=== PATIENT | female | born 1955 | race Caucasian/White ===

== ENCOUNTER → 2016-08-11 | Outpatient (CLI) | payer OTHER ==
[~2016-08-11] MED LIST: ACET500T76 PO; AMOX1TAB64 PO; ASPI-515 PO; B12 PO; CALCIUM PO; FISH1CAP PO; GLUC-120 PO; GLUCOSAMINE PO; HYDR-882 PO; IBUP-1222 PO; LACT1CAP37 PO; LISI5TAB7 PO; METO25TA2 PO; MULTIVITAMIN PO; OMNIPAQUE 350 MG/ML, 100ML BOTTLE ONE; SENN1TAB5 PO; TUMERIC PO; VITAMIN D3 PO
== END | disposition home or self-care (01) ==
LOC: CFH 13:13
PROVIDERS: ATTEND Specialist
DX: C56.1 Malignant neoplasm of right ovary (principal); R59.9 Enlarged lymph nodes, unspecified
CPT/HCPCS: 74177; Q9967

== ENCOUNTER → 2016-09-04 | Outpatient (CLI) | payer OTHER ==
[~2016-09-04] MED LIST changes: -OMNIPAQUE 350 MG/ML, 100ML BOTTLE ONE
== END | disposition home or self-care (01) ==
LOC: STAR 13:30
PROVIDERS: ATTEND Nurse Practitioner Family
DX: Z01.810 Encounter for preprocedural cardiovascular examination (principal); C56.1 Malignant neoplasm of right ovary
CPT/HCPCS: 93005

== ENCOUNTER → 2016-12-30 | Outpatient (CLI) | payer OTHER ==
[~2016-12-30] MED LIST changes: +ACET500T71 PO; -ACET500T76 PO; +SENN-52 PO; -SENN1TAB5 PO
== END | disposition home or self-care (01) ==
LOC: CFH 07:15
PROVIDERS: ATTEND Specialist
DX: K80.20 Calculus of gallbladder without cholecystitis without obstruction (principal); R18.8 Other ascites; C56.1 Malignant neoplasm of right ovary
CPT/HCPCS: 76700

== ENCOUNTER 2017-01-01 09:13 | Inpatient (IN) | payer OTHER ==
[~2017-01-01] VITALS: Ht 157.5 cm; Wt 84.6 kg
[2017-01-01] MEDS ORDERED: MORPHINE SULFATE 4 MG/ML, 1ML ONE (09:55)
[2017-01-01] MEDS ORDERED: ONDANSETRON 2MG/ML, 2ML ONE (09:56)
[2017-01-01 09:58] LABS: HEMATOCRIT 41.6 % (34.6-47.8); HEMOGLOBIN 13.8 g/dL (11.7-16.4); WHITE BLOOD COUNT 7.8 x10^3/uL (3.4-10)
[2017-01-01] MEDS ORDERED: SODIUM CHLORIDE 0.9% 1,000ML IVBOLUS ONE (10:00)
[2017-01-01] MEDS ORDERED: MORPHINE SULFATE 4 MG/ML, 1ML IVPush PRN (10:00)
[2017-01-01] MEDS ORDERED: ONDANSETRON 2MG/ML, 2ML IVPush ONE (10:00)
[2017-01-01] MEDS ORDERED: SODIUM CHLORIDE FLUSH 10ML SYR IVF ONE (10:00)
[2017-01-01 11:09] LABS: BLOOD UREA NITROGEN 10 mg/dL (7-18)
[2017-01-01 11:12] LABS: ASPARTATE AMINO TRANSFERASE 42 U/L (15-37)
[2017-01-01] MEDS ORDERED: OMNIPAQUE 350 MG/ML, 100ML BOTTLE ONE (11:53)
[2017-01-01] MEDS ORDERED: LISI5TAB7 PO (12:53)
[2017-01-01 18:36] VITALS: BP 144/83
[2017-01-01] MEDS ORDERED: FAMOTIDINE 20 MG/2 ML IVPush PRN (19:30)
[2017-01-01] MEDS: MORPHINE SULFATE 4 MG/ML, 1ML IVPush PRN (20:48)
[2017-01-01 21:00] VITALS: BP 144/83
[2017-01-01] MEDS: D5%-0.45NACL+KCL 20MEQ 1,000 ML IV SCH (21:59)
[2017-01-01] MEDS: ONDANSETRON 2MG/ML, 2ML IVPush PRN (23:11)
[2017-01-02 01:02] VITALS: BP 121/78
[2017-01-02 04:32] LABS: HEMATOCRIT 37.5 % (34.6-47.8); HEMOGLOBIN 12.3 g/dL (11.7-16.4); WHITE BLOOD COUNT 5.8 x10^3/uL (3.4-10)
[2017-01-02 04:40] LABS: BLOOD UREA NITROGEN 6 mg/dL (7-18)
[2017-01-02 07:24] VITALS: BP 120/76
[2017-01-02] MEDS: MORPHINE SULFATE 4 MG/ML, 1ML IVPush PRN ×2 (07:47→21:23)
[2017-01-02] MEDS: ONDANSETRON 2MG/ML, 2ML IVPush PRN (07:47)
[2017-01-02 13:43] VITALS: BP 120/76
[2017-01-02] MEDS ORDERED: BENZOCAINE AEROSOL SPRAY 20%, 60ML TP PRN (14:30)
[2017-01-02] MEDS ORDERED: ACETAMINOPHEN 325 MG TABLET PO PRN (14:30)
[2017-01-02 19:18] VITALS: BP 132/77
[2017-01-02] MEDS: D5%-0.45NACL+KCL 20MEQ 1,000 ML IV SCH (20:26)
[2017-01-02] MEDS ORDERED: HYDROmorphone 2 MG/ML, 1ML IVPush PRN (20:30)
[2017-01-03 00:35] VITALS: BP 132/79
[2017-01-03 07:39] VITALS: BP 108/70
[2017-01-03 14:17] VITALS: BP 109/72
[2017-01-03] MEDS: D5%-0.45NACL+KCL 20MEQ 1,000 ML IV SCH (18:29)
[2017-01-03] MEDS ORDERED: HYDROmorphone 2 MG/ML, 1ML IVPush PRN (19:30)
[2017-01-03] MEDS ORDERED: ACETAMINOPHEN 325 MG TABLET PO PRN (19:30)
[2017-01-03 19:54] VITALS: BP 114/74
[2017-01-03 23:27] LABS: BLOOD UREA NITROGEN 9 mg/dL (7-18)
[2017-01-03] MEDS: ONDANSETRON 2MG/ML, 2ML IVPush PRN (23:39)
[2017-01-03] MEDS: MORPHINE SULFATE 4 MG/ML, 1ML IVPush PRN (23:39)
[2017-01-04 01:13] VITALS: BP 108/70
[2017-01-04 07:44] VITALS: BP 115/79
[2017-01-04 14:00] VITALS: BP 116/77
[2017-01-04] MEDS: D5%-0.45NACL+KCL 20MEQ 1,000 ML IV SCH (14:44)
[2017-01-04 19:53] VITALS: BP 121/79
[2017-01-04] MEDS: ONDANSETRON 2MG/ML, 2ML IVPush PRN (23:25)
[2017-01-04] MEDS: MORPHINE SULFATE 4 MG/ML, 1ML IVPush PRN (23:25)
[2017-01-05 01:56] VITALS: BP 129/79
[2017-01-05 07:49] VITALS: BP 106/70
[2017-01-05] MEDS: D5%-0.45NACL+KCL 20MEQ 1,000 ML IV SCH (09:11)
[2017-01-05 14:23] VITALS: BP 116/75
[2017-01-05 20:18] VITALS: BP 105/76
[2017-01-06] MEDS: D5%-0.45NACL+KCL 20MEQ 1,000 ML IV SCH (04:52)
[2017-01-06 04:55] VITALS: BP 116/82
[2017-01-06 05:18] LABS: HEMATOCRIT 38.1 % (34.6-47.8); HEMOGLOBIN 12.6 g/dL (11.7-16.4); WHITE BLOOD COUNT 6.6 x10^3/uL (3.4-10)
[2017-01-06 05:26] LABS: BLOOD UREA NITROGEN 6 mg/dL (7-18)
[2017-01-06 07:53] VITALS: BP 115/76
[2017-01-06] MEDS: ONDANSETRON 2MG/ML, 2ML IVPush PRN ×2 (11:01→17:33)
[2017-01-06] MEDS: MORPHINE SULFATE 4 MG/ML, 1ML IVPush PRN ×4 (11:02→20:47)
[2017-01-06 15:32] VITALS: BP 117/80
[2017-01-06] MEDS ORDERED: OMNIPAQUE 350 MG/ML, 150 ML BOTTLE ONE (16:29)
[2017-01-06 20:14] VITALS: BP 126/88
[2017-01-07 00:46] VITALS: BP 113/76
[2017-01-07] MEDS: D5%-0.45NACL+KCL 20MEQ 1,000 ML IV SCH ×2 (00:49→21:03)
[2017-01-07] MEDS: MORPHINE SULFATE 4 MG/ML, 1ML IVPush PRN ×4 (01:58→20:21)
[2017-01-07] MEDS: ONDANSETRON 2MG/ML, 2ML IVPush PRN ×3 (01:58→20:22)
[2017-01-07 07:41] VITALS: BP 107/72
[2017-01-07 13:40] VITALS: BP 111/75
[2017-01-07] MEDS: FAMOTIDINE 20 MG/2 ML IVPush PRN (17:08)
[2017-01-07 19:49] VITALS: BP 116/80
[2017-01-08 01:40] VITALS: BP 110/74
[2017-01-08 07:59] VITALS: BP 101/67
[2017-01-08] MEDS ORDERED: LORazepam 0.5MG TABLET PO PRN (09:00)
[2017-01-08] MEDS ORDERED: LORazepam 2 MG/ML, 1ML IV PRN (09:00)
[2017-01-08] MEDS: METOCLOPRAMIDE 10MG TABLET PO SCH ×4 (09:00→22:02)
[2017-01-08] MEDS: METOCLOPRAMIDE 5 MG/ML, 2ML IV SCH ×3 (09:50→21:00)
[2017-01-08] MEDS: FAMOTIDINE 20 MG/2 ML IVPush PRN ×2 (11:53→20:05)
[2017-01-08] MEDS: ONDANSETRON 2MG/ML, 2ML IVPush PRN ×2 (12:37→22:06)
[2017-01-08] MEDS: MORPHINE SULFATE 4 MG/ML, 1ML IVPush PRN ×3 (12:37→22:06)
[2017-01-08 12:38] VITALS: BP 126/83
[2017-01-08] MEDS: D5%-0.45NACL+KCL 20MEQ 1,000 ML IV SCH (18:04)
[2017-01-08 19:10] VITALS: BP 123/79
[2017-01-09 01:41] VITALS: BP 105/67
[2017-01-09] MEDS: METOCLOPRAMIDE 10MG TABLET PO SCH ×4 (04:00→21:29)
[2017-01-09] MEDS: METOCLOPRAMIDE 5 MG/ML, 2ML IV SCH ×4 (04:30→21:05)
[2017-01-09 07:53] VITALS: BP 114/79
[2017-01-09] MEDS: FAMOTIDINE 20 MG/2 ML IVPush PRN ×2 (08:03→19:54)
[2017-01-09 14:40] VITALS: BP 111/74
[2017-01-09] MEDS: D5%-0.45NACL+KCL 20MEQ 1,000 ML IV SCH (15:42)
[2017-01-09 18:45] VITALS: BP 116/78
[2017-01-09] MEDS: ONDANSETRON 2MG/ML, 2ML IVPush PRN (23:10)
[2017-01-09] MEDS: MORPHINE SULFATE 4 MG/ML, 1ML IVPush PRN (23:10)
[2017-01-10 02:51] VITALS: BP 112/73
[2017-01-10] MEDS: METOCLOPRAMIDE 10MG TABLET PO SCH ×4 (04:00→21:32)
[2017-01-10] MEDS: METOCLOPRAMIDE 5 MG/ML, 2ML IV SCH ×4 (04:12→21:28)
[2017-01-10] MEDS: D5%-0.45NACL+KCL 20MEQ 1,000 ML IV SCH (08:23)
[2017-01-10 08:24] VITALS: BP 127/63
[2017-01-10] MEDS: FAMOTIDINE 20 MG/2 ML IVPush PRN (08:31)
[2017-01-10 12:45] VITALS: BP 145/85
[2017-01-10] MEDS: ONDANSETRON 2MG/ML, 2ML IVPush PRN (18:22)
[2017-01-10] MEDS: MORPHINE SULFATE 4 MG/ML, 1ML IVPush PRN (18:23)
[2017-01-10] MEDS ORDERED: ACETAMINOPHEN 325 MG TABLET PO PRN (18:30)
[2017-01-10 19:45] VITALS: BP 115/76
[2017-01-10] MEDS: FAMOTIDINE 20 MG/2 ML IVPush SCH (21:32)
[2017-01-11 02:55] VITALS: BP 135/94
[2017-01-11] MEDS: METOCLOPRAMIDE 5 MG/ML, 2ML IV SCH ×4 (03:48→21:15)
[2017-01-11] MEDS: METOCLOPRAMIDE 10MG TABLET PO SCH ×4 (03:48→21:14)
[2017-01-11] MEDS: D5%-0.45NACL+KCL 20MEQ 1,000 ML IV SCH ×2 (04:26→23:37)
[2017-01-11 07:46] VITALS: BP 122/79
[2017-01-11] MEDS: FAMOTIDINE 20 MG/2 ML IVPush SCH ×2 (09:17→21:14)
[2017-01-11 14:58] VITALS: BP 124/83
[2017-01-11] MEDS: ONDANSETRON 2MG/ML, 2ML IVPush PRN (18:34)
[2017-01-11] MEDS: MORPHINE SULFATE 4 MG/ML, 1ML IVPush PRN (18:34)
[2017-01-11 20:12] VITALS: BP 121/79
[2017-01-12] MEDS: METOCLOPRAMIDE 10MG TABLET PO SCH ×4 (04:00→22:06)
[2017-01-12] MEDS: METOCLOPRAMIDE 5 MG/ML, 2ML IV SCH ×4 (04:11→22:00)
[2017-01-12 08:05] VITALS: BP 123/86
[2017-01-12] MEDS: FAMOTIDINE 20 MG/2 ML IVPush SCH ×2 (08:16→22:06)
[2017-01-12] MEDS ORDERED: OXYcodone/APAP 5/325MG TABLET PO PRN (09:00)
[2017-01-12] MEDS: MORPHINE SULFATE 4 MG/ML, 1ML IVPush PRN ×2 (15:58→19:45)
[2017-01-12] MEDS: ONDANSETRON 2MG/ML, 2ML IVPush PRN (15:58)
[2017-01-12] MEDS: CEFOTETAN PMX 2GM/50ML 50 ML IV SCH (18:16)
[2017-01-12 18:52] LABS: HEMATOCRIT 39.8 % (34.6-47.8); HEMOGLOBIN 12.9 g/dL (11.7-16.4); WHITE BLOOD COUNT 6.3 x10^3/uL (3.4-10)
[2017-01-12 19:01] LABS: ASPARTATE AMINO TRANSFERASE 25 U/L (15-37); BLOOD UREA NITROGEN 5 mg/dL (7-18)
[2017-01-12 19:19] VITALS: BP 117/78
[2017-01-12] MEDS: D5%-0.45NACL+KCL 20MEQ 1,000 ML IV SCH ×2 (22:06→23:00)
[2017-01-13 02:50] VITALS: BP 121/75
[2017-01-13] MEDS: METOCLOPRAMIDE 5 MG/ML, 2ML IV SCH ×4 (04:32→21:58)
[2017-01-13] MEDS: METOCLOPRAMIDE 10MG TABLET PO SCH ×4 (04:32→21:57)
[2017-01-13] MEDS: CEFOTETAN PMX 2GM/50ML 50 ML IV SCH ×2 (05:45→17:48)
[2017-01-13] MEDS ORDERED: EPINEPHRINE 1 MG/ML, 1ML ONE (06:15)
[2017-01-13] MEDS ORDERED: BUPIVACAINE/PF 0.5% ONE (06:15)
[2017-01-13] MEDS ORDERED: FENTANYL PF 100 MCG/2ML ONE ×3 (06:46→08:17)
[2017-01-13] MEDS ORDERED: MIDAZOLAM 1 MG/ML, 2ML ONE (06:46)
[2017-01-13] MEDS ORDERED: ONDANSETRON 2MG/ML, 2ML ONE ×2 (06:48)
[2017-01-13] MEDS ORDERED: ROCURONIUM 10 MG/ML ONE ×2 (06:48→06:51)
[2017-01-13] MEDS ORDERED: DEXAMETHASONE 4 MG/ML, 1ML ONE ×2 (06:48)
[2017-01-13] MEDS ORDERED: PROPOFOL 10 MG/ML, 20ML ONE (06:48)
[2017-01-13] MEDS ORDERED: SUCCINYLCHOLINE 20 MG/ML, 10ML ONE (06:48)
[2017-01-13] MEDS ORDERED: LIDOCAINE GEL 2%, 5ML ONE (06:51)
[2017-01-13] MEDS ORDERED: PHENYLEPHRINE 10 MG/ML ONE (07:03)
[2017-01-13] MEDS ORDERED: KETAMINE 10 MG/ML, 20ML ONE (07:05)
[2017-01-13] MEDS ORDERED: KETOROLAC 30 MG/1 ML ONE (07:21)
[2017-01-13] MEDS ORDERED: ACETAMINOPHEN 325 MG TABLET PO PRN (07:30)
[2017-01-13] MEDS ORDERED: ALBUTEROL SULFATE 2.5 MG/3 ML NPPB PRN (07:30)
[2017-01-13] MEDS ORDERED: hydrALAzine 20 MG/ML, 1ML IV PRN (07:30)
[2017-01-13] MEDS ORDERED: FENTANYL PF 100 MCG/2ML IV PRN (07:30)
[2017-01-13] MEDS ORDERED: MEPERIDINE/PF 25MG/0.5ML IVPush PRN (07:30)
[2017-01-13] MEDS ORDERED: OXYcodone 5 MG/5 ML ORAL.SOL UDC PO PRN (07:30)
[2017-01-13] MEDS ORDERED: MIDAZOLAM 1 MG/ML, 2ML IV PRN (07:30)
[2017-01-13] MEDS ORDERED: LABETALOL 5MG/ML, 20ML IV PRN (07:30)
[2017-01-13] MEDS ORDERED: ONDANSETRON 2MG/ML, 2ML IVPush PRN (07:30)
[2017-01-13] MEDS ORDERED: PROMETHAZINE 25 MG/ML, 1ML IV PRN (07:30)
[2017-01-13] MEDS ORDERED: NEOSTIGMINE 1 MG/ML, 10ML ONE (08:21)
[2017-01-13] MEDS ORDERED: GLYCOPYRROLATE 0.2MG/1ML, 5ML ONE (08:21)
[2017-01-13] MEDS ORDERED: OXYcodone 5 MG/5 ML ORAL.SOL UDC ONE (08:59)
[2017-01-13] MEDS ORDERED: HYDROmorphone 1 MG/ML, 1ML ONE (08:59)
[2017-01-13] MEDS: HYDROmorphone 1 MG/ML, 1ML IV PRN ×2 (09:03→09:11)
[2017-01-13 09:55] VITALS: BP 152/84
[2017-01-13] MEDS: FAMOTIDINE 20 MG/2 ML IVPush SCH ×2 (10:15→20:56)
[2017-01-13] MEDS: MORPHINE SULFATE 4 MG/ML, 1ML IVPush PRN ×4 (10:52→18:26)
[2017-01-13] MEDS: D5%-0.45NACL+KCL 20MEQ 1,000 ML IV SCH ×3 (13:00→14:25)
[2017-01-13 13:36] VITALS: BP 123/71
[2017-01-13] MEDS ORDERED: CATHFLO-ALTEPLASE 2 MG/2 ML CATHFLUSH ONE ×2 (16:00)
[2017-01-13 20:22] VITALS: BP 129/68
[2017-01-13] MEDS: OXYcodone/APAP 7.5/325MG TABLET PO PRN (20:40)
[2017-01-13] MEDS: ONDANSETRON 2MG/ML, 2ML IVPush PRN (20:40)
[2017-01-14] MEDS: D5%-0.45NACL+KCL 20MEQ 1,000 ML IV SCH ×4 (02:25→20:32)
[2017-01-14 02:45] VITALS: BP 127/72
[2017-01-14] MEDS: METOCLOPRAMIDE 10MG TABLET PO SCH ×5 (04:20→21:43)
[2017-01-14] MEDS: METOCLOPRAMIDE 5 MG/ML, 2ML IV SCH ×4 (04:26→20:32)
[2017-01-14 07:43] VITALS: BP 123/75
[2017-01-14] MEDS: FAMOTIDINE 20 MG/2 ML IVPush SCH ×2 (07:46→20:32)
[2017-01-14] MEDS: ONDANSETRON 2MG/ML, 2ML IVPush PRN ×2 (07:46→15:47)
[2017-01-14] MEDS: MORPHINE SULFATE 4 MG/ML, 1ML IVPush PRN ×5 (07:46→21:42)
[2017-01-14] MEDS ORDERED: OXYC-293 PO (13:22)
[2017-01-14] MEDS ORDERED: ONDA4TAB12 PO (13:23)
[2017-01-14] MEDS ORDERED: METO10TA2 PO (13:24)
[2017-01-14] MEDS: OXYcodone/APAP 7.5/325MG TABLET PO PRN (13:42)
[2017-01-14 14:32] VITALS: BP 131/77
[2017-01-14 20:02] VITALS: BP 114/79
[2017-01-15 02:10] VITALS: BP 108/70
[2017-01-15] MEDS: METOCLOPRAMIDE 10MG TABLET PO SCH ×3 (03:25→15:27)
[2017-01-15] MEDS: D5%-0.45NACL+KCL 20MEQ 1,000 ML IV SCH ×3 (04:44→13:00)
[2017-01-15] MEDS: ONDANSETRON 2MG/ML, 2ML IVPush PRN (04:44)
[2017-01-15] MEDS: METOCLOPRAMIDE 5 MG/ML, 2ML IV SCH ×3 (04:44→16:00)
[2017-01-15] MEDS: MORPHINE SULFATE 4 MG/ML, 1ML IVPush PRN (04:44)
[2017-01-15 06:13] LABS: HEMATOCRIT 35.2 % (34.6-47.8); HEMOGLOBIN 11.7 g/dL (11.7-16.4)
[2017-01-15 06:20] LABS: ASPARTATE AMINO TRANSFERASE 23 U/L (15-37); BLOOD UREA NITROGEN 4 mg/dL (7-18)
[2017-01-15 07:55] VITALS: BP 110/76
[2017-01-15] MEDS: OXYcodone/APAP 7.5/325MG TABLET PO PRN ×3 (08:21→16:43)
[2017-01-15] MEDS: KETOROLAC 30 MG/1 ML IM SCH ×2 (09:30→15:29)
[2017-01-15] MEDS: FAMOTIDINE 20 MG/2 ML IVPush SCH (10:11)
[2017-01-15 14:00] VITALS: BP 126/70
== END 2017-01-15 17:51 | disposition home or self-care (01) | DRG 418 ==
LOC: ED 10:29 → EDIP 13:22 → 3NW 17:50
PROVIDERS: ADMIT Specialist; ATTEND Specialist
PROC: 02HV33Z Insertion of Infusion Device into Superior Vena Cava, Percutaneous Approach (ICD-10-PCS; 2017-01-04)
PROC: B5181ZA Fluoroscopy of Superior Vena Cava using Low Osmolar Contrast, Guidance (ICD-10-PCS; 2017-01-04)
PROC: 3E0436Z Introduction of Nutritional Substance into Central Vein, Percutaneous Approach (ICD-10-PCS; 2017-01-04)
PROC: 0DNW4ZZ Release Peritoneum, Percutaneous Endoscopic Approach (ICD-10-PCS; 2017-01-13)
PROC: 0FT44ZZ Resection of Gallbladder, Percutaneous Endoscopic Approach (ICD-10-PCS; principal; 2017-01-13 07:00)
DX: K80.00 Calculus of gallbladder with acute cholecystitis without obstruction (principal); C80.0 Disseminated malignant neoplasm, unspecified; R18.8 Other ascites; C56.9 Malignant neoplasm of unspecified ovary; K56.7 Ileus, unspecified; K82.8 Other specified diseases of gallbladder; K66.0 Peritoneal adhesions (postprocedural) (postinfection); Z85.41 Personal history of malignant neoplasm of cervix uteri; Z87.891 Personal history of nicotine dependence; Z85.43 Personal history of malignant neoplasm of ovary; Z90.710 Acquired absence of both cervix and uterus
CPT/HCPCS: 36415; 36569; 74000; 74177; 74250; 76937; 77001; 78226; 80048; 80053; 81001; 82040; 83690; 84134; 85025; 87086; 88304; 96361; 96374; 96375; J0171; J1100; J1170; J1885; J2250; J2405; J2704; J2710; J2997; J3010; J3490; Q9967; A9537; C1751; C1760; C9898; J0330; J2370; J2765; J3480; J7030; S0028; S0074

== ENCOUNTER 2017-02-19 18:43 | Inpatient (IN) | payer OTHER ==
[~2017-02-19] VITALS: Ht 157.5 cm; Wt 75.1 kg
[~2017-02-19 18:43] MED LIST changes: -ENOX80SY5 SQ
[2017-02-19] MEDS ORDERED: morphine SULFATE 10 MG/ML, 1ML ONE (21:15)
[2017-02-19] MEDS ORDERED: ONDANSETRON 2MG/ML, 2ML ONE (21:22)
[2017-02-19] MEDS ORDERED: MORPHINE SULFATE 4 MG/ML, 1ML IVPush PRN (21:30)
[2017-02-19] MEDS ORDERED: ONDANSETRON 2MG/ML, 2ML IVPush ONE (22:00)
[2017-02-19] MEDS ORDERED: HEPARIN 25,000 UNITS/500ML PMX 500 ML IV PRN (23:30)
[2017-02-19] MEDS ORDERED: HEPARIN 5,000 UNITS/ML, 1ML IV ONE (23:30)
[2017-02-20 00:11] VITALS: BP 98/64
[2017-02-20] MEDS ORDERED: PROCHLORPERAZINE 10MG TABLET PO PRN (01:30)
[2017-02-20] MEDS ORDERED: HEPARIN 5,000 UNITS/ML, 1ML IVPush SCH (01:30)
[2017-02-20] MEDS ORDERED: HEPARIN 25,000 UNITS/500ML PMX 500 ML IV SCH (01:30)
[2017-02-20] MEDS: POTASSIUM CHLORIDE 20 MEQ in SODIUM CHLORIDE 0.45% 1,000 ML IV SCH ×2 (02:06→11:00)
[2017-02-20] MEDS: morphine SULFATE ORAL.CONC 20 MG/ML SL PRN ×2 (02:28→14:22)
[2017-02-20] MEDS: ONDANSETRON ODT 4 MG PO PRN ×2 (02:28→15:07)
[2017-02-20 07:24] VITALS: BP 106/70
[2017-02-20] MEDS ORDERED: ENOX80SY5 SQ (09:52)
[2017-02-20] MEDS ORDERED: ENOXAPARIN 80 MG/0.8 ML SQ SCH (11:00)
[2017-02-20] MEDS ORDERED: FENTANYL 50 MCG PATCH TD SCH (12:00)
[2017-02-20 13:58] VITALS: BP 103/68
[2017-02-23] MEDS ORDERED: FENTANYL REMOVE PATCH NOTE XX SCH (12:00)
== END 2017-02-20 16:30 | disposition home or self-care (01) | DRG 300 ==
LOC: ED 23:24 → EDIP 23:36 → 3NW 23:59
PROVIDERS: ADMIT Specialist; ATTEND Specialist
DX: I82.411 Acute embolism and thrombosis of right femoral vein (principal); C56.9 Malignant neoplasm of unspecified ovary; C80.0 Disseminated malignant neoplasm, unspecified; K56.7 Ileus, unspecified; I82.441 Acute embolism and thrombosis of right tibial vein; I10 Essential (primary) hypertension
CPT/HCPCS: 36415; 85520; 85610; 85730; 96374; J1644; J1650; J2405; J3480; Q0162

== ENCOUNTER → 2017-02-19 | Outpatient (CLI) | payer OTHER ==
[~2017-02-19] MED LIST changes: +ENOX80SY5 SQ; +FENT1PAT77 TD; +METO10TA2 PO; +MORP2SYR SL; +ONDA4TAB10 PO; +ONDA4TAB12 PO; +OXYC-293 PO; +PROC10TA78 PO; +Roxanol PO; +[UNRECOGNIZED DRUG - OTHER]
== END | disposition home or self-care (01) ==
LOC: RAD 17:34
PROVIDERS: ATTEND Surgery
DX: I82.431 Acute embolism and thrombosis of right popliteal vein (principal); I82.411 Acute embolism and thrombosis of right femoral vein; I82.441 Acute embolism and thrombosis of right tibial vein

== ENCOUNTER 2017-02-24 06:50 | Inpatient (IN) | payer OTHER ==
[~2017-02-24] VITALS: Ht 157.5 cm; Wt 70.0 kg
[~2017-02-24 06:50] MED LIST changes: +ENOX80SY5 SQ
[2017-02-24] MEDS ORDERED: SODIUM CHLORIDE FLUSH 10ML SYR IVF ONE (07:30)
[2017-02-24] MEDS ORDERED: SODIUM CHLORIDE 0.9% 1,000ML IVBOLUS ONE (07:30)
[2017-02-24 08:38] LABS: HEMATOCRIT 27.8 % (34.6-47.8); HEMOGLOBIN 8.9 g/dL (11.7-16.4)
[2017-02-24 08:46] LABS: ASPARTATE AMINO TRANSFERASE 33 U/L (15-37); BLOOD UREA NITROGEN 40 mg/dL (7-18)
[2017-02-24] MEDS ORDERED: CEFTRIAXONE PMX 1GM/50ML 50 ML IVPB ONE (09:30)
[2017-02-24] MEDS ORDERED: CEFTRIAXONE PMX 1GM/50ML 50 ML ONE (09:44)
[2017-02-24] MEDS ORDERED: SODIUM CHLORIDE 0.9% 1,000 ML IV SCH ×2 (09:53→15:00)
[2017-02-24] MEDS ORDERED: POLYETHYLENE GLYCOL 17 GM PACKET PO PRN (10:00)
[2017-02-24] MEDS ORDERED: LABETALOL 5MG/ML, 20ML IVPush PRN (10:00)
[2017-02-24] MEDS ORDERED: TPN PER PHARMACY MC PRN (10:00)
[2017-02-24] MEDS ORDERED: LACTULOSE 10 GM/15 ML UDC PO PRN (10:00)
[2017-02-24] MEDS ORDERED: SODIUM CHLORIDE FLUSH 10ML SYR IVF PRN (11:00)
[2017-02-24] MEDS ORDERED: SODIUM CHLORIDE 0.9% 1,000 ML IV ONE (11:00)
[2017-02-24] MEDS ORDERED: CEFTRIAXONE 1,000 MG in DEXTROSE 5% 50 ML IV SCH (12:00)
[2017-02-24] MEDS: FENTANYL REMOVE PATCH NOTE XX SCH (12:00)
[2017-02-24 12:26] VITALS: BP 110/66
[2017-02-24] MEDS ORDERED: FILTER 1.2 MICRON IV PRN (14:30)
[2017-02-24] MEDS ORDERED: DEXTROSE 10% 500 ML IV PRN (17:00)
[2017-02-24] MEDS ORDERED: DEXTROSE 50%, 50ML SYRINGE IVPush PRN (17:00)
[2017-02-24] MEDS: ACETAMINOPHEN 650 MG SUPP PR PRN ×2 (17:22→23:35)
[2017-02-24] MEDS: DEXTROSE 70% IV SCH ×2 (17:34→18:00)
[2017-02-24] MEDS: FAT EMULSIONS IV SCH ×2 (17:34→18:00)
[2017-02-24] MEDS: [UNRECOGNIZED DRUG - OTHER] IV SCH ×2 (17:34→18:00)
[2017-02-24] MEDS: AMINO ACID 10% IV SCH ×2 (17:34→18:00)
[2017-02-24] MEDS ORDERED: D5%-0.2% NACL 1,000 ML IV SCH (21:00)
[2017-02-24] MEDS ORDERED: FAMOTIDINE 20 MG/2 ML IVPush SCH (21:00)
[2017-02-24] MEDS ORDERED: MAGNESIUM SULFATE PMX 2GM/50ML 50 ML IV ONE (21:00)
[2017-02-24] MEDS ORDERED: POTASSIUM CHLORIDE 40 MEQ in SODIUM CHLORIDE 0.9% 100 ML IV ONE (21:00)
[2017-02-24] MEDS: INSULIN REGULAR LOW DOSE Q6H X 48HRS SQ-INSULIN SCH (21:00)
[2017-02-24 21:16] LABS: BLOOD UREA NITROGEN 43 mg/dL (7-18)
[2017-02-24] MEDS: ENOXAPARIN 80 MG/0.8 ML SQ SCH (21:43)
[2017-02-24] MEDS ORDERED: MAGNESIUM SULFATE PMX 2GM/50ML 50 ML IV PRN (22:00)
[2017-02-25] MEDS: INSULIN REGULAR LOW DOSE Q6H X 48HRS SQ-INSULIN SCH (03:00)
[2017-02-25 03:30] VITALS: BP 98/48
[2017-02-25] MEDS: morphine SULFATE 10 MG/ML, 1ML IVPush PRN ×2 (04:29→22:45)
[2017-02-25 04:37] LABS: HEMATOCRIT 24.8 % (34.6-47.8); HEMOGLOBIN 7.9 g/dL (11.7-16.4); WHITE BLOOD COUNT 8.5 x10^3/uL (3.4-10)
[2017-02-25 04:45] LABS: BLOOD UREA NITROGEN 37 mg/dL (7-18)
[2017-02-25 04:50] LABS: ASPARTATE AMINO TRANSFERASE 25 U/L (15-37)
[2017-02-25] MEDS: ONDANSETRON 2MG/ML, 2ML IVPush PRN (07:49)
[2017-02-25] MEDS: ENOXAPARIN 80 MG/0.8 ML SQ SCH ×2 (08:47→21:01)
[2017-02-25] MEDS ORDERED: D5%-0.2% NACL 1,000 ML IV SCH (09:00)
[2017-02-25] MEDS ORDERED: CEFTRIAXONE 1,000 MG in DEXTROSE 5% 50 ML IV SCH ×3 (10:00→12:00)
[2017-02-25] MEDS: DEXTROSE 5% 1,000 ML IV SCH ×2 (11:19→21:05)
[2017-02-25] MEDS: ACETAMINOPHEN 650 MG SUPP PR PRN ×2 (14:48→22:45)
[2017-02-25] MEDS ORDERED: AMINO ACID 10% IV SCH (18:00)
[2017-02-25] MEDS ORDERED: FAT EMULSIONS IV SCH (18:00)
[2017-02-25] MEDS ORDERED: [UNRECOGNIZED DRUG - OTHER] IV SCH (18:00)
[2017-02-25] MEDS ORDERED: FILTER 1.2 MICRON IV PRN (18:00)
[2017-02-25] MEDS ORDERED: DEXTROSE 70% IV SCH (18:00)
[2017-02-25] MEDS ORDERED: INSULIN REGULAR LOW DOSE Q6H X 48HRS SQ-INSULIN SCH (21:00)
[2017-02-26 04:00] VITALS: BP 91/59
[2017-02-26 04:33] LABS: BLOOD UREA NITROGEN 32 mg/dL (7-18)
[2017-02-26] MEDS ORDERED: POTASSIUM CHLORIDE 40 MEQ in SODIUM CHLORIDE 0.9% 100 ML IV ONE (05:00)
[2017-02-26] MEDS: morphine SULFATE 10 MG/ML, 1ML IVPush PRN ×2 (06:38→23:10)
[2017-02-26] MEDS: INSULIN REGULAR LOW DOSE QDAY SQ-INSULIN SCH (09:00)
[2017-02-26 10:29] LABS: BLOOD UREA NITROGEN 26 mg/dL (7-18)
[2017-02-26 10:32] LABS: ASPARTATE AMINO TRANSFERASE 38 U/L (15-37)
[2017-02-26] MEDS: ENOXAPARIN 80 MG/0.8 ML SQ SCH ×2 (12:35→20:52)
[2017-02-26] MEDS: DEXTROSE 5% 1,000 ML IV SCH ×2 (12:36→22:50)
[2017-02-26] MEDS: CEFTRIAXONE PMX 1GM/50ML 50 ML IV SCH (12:36)
[2017-02-26] MEDS: FENTANYL 50 MCG PATCH TD PRN (12:48)
[2017-02-26] MEDS: ACETAMINOPHEN 650 MG SUPP PR PRN (15:03)
[2017-02-26] MEDS ORDERED: FILTER 1.2 MICRON IV PRN (18:00)
[2017-02-26] MEDS ORDERED: FAT EMULSIONS IV SCH (18:00)
[2017-02-26] MEDS ORDERED: DEXTROSE 70% IV SCH (18:00)
[2017-02-26] MEDS ORDERED: AMINO ACID 10% IV SCH (18:00)
[2017-02-26] MEDS ORDERED: [UNRECOGNIZED DRUG - OTHER] IV SCH (18:00)
[2017-02-27 03:30] LABS: BLOOD UREA NITROGEN 24 mg/dL (7-18)
[2017-02-27 04:00] VITALS: BP 107/68
[2017-02-27] MEDS: morphine SULFATE 10 MG/ML, 1ML IVPush PRN ×2 (04:44→15:48)
[2017-02-27] MEDS ORDERED: INSULIN REGULAR LOW DOSE QDAY SQ-INSULIN SCH (09:00)
[2017-02-27] MEDS: INSULIN REGULAR LOW DOSE QDAY SQ-INSULIN SCH (09:00)
[2017-02-27] MEDS: DEXTROSE 5% 1,000 ML IV SCH (10:40)
[2017-02-27] MEDS: FENTANYL REMOVE PATCH NOTE XX SCH (10:41)
[2017-02-27] MEDS: ENOXAPARIN 80 MG/0.8 ML SQ SCH ×2 (10:43→23:34)
[2017-02-27] MEDS: CEFTRIAXONE PMX 1GM/50ML 50 ML IV SCH (12:42)
[2017-02-27 16:32] VITALS: BP 91/60
[2017-02-27] MEDS ORDERED: FAT EMULSIONS IV SCH ×2 (18:00)
[2017-02-27] MEDS ORDERED: [UNRECOGNIZED DRUG - OTHER] IV SCH (18:00)
[2017-02-27] MEDS ORDERED: DEXTROSE 70% IV SCH ×2 (18:00)
[2017-02-27] MEDS ORDERED: FILTER 1.2 MICRON IV PRN (18:00)
[2017-02-27] MEDS ORDERED: [UNRECOGNIZED DRUG - OTHER] IV SCH (18:00)
[2017-02-27] MEDS ORDERED: AMINO ACID 10% IV SCH ×2 (18:00)
[2017-02-27 18:36] VITALS: BP 96/68
[2017-02-28 00:52] VITALS: BP 100/66
[2017-02-28] MEDS: morphine SULFATE 10 MG/ML, 1ML IVPush PRN ×3 (00:55→20:49)
[2017-02-28] MEDS: ONDANSETRON 2MG/ML, 2ML IVPush PRN ×2 (01:02→17:09)
[2017-02-28 04:15] LABS: BLOOD UREA NITROGEN 17 mg/dL (7-18)
[2017-02-28 06:46] VITALS: BP 89/60
[2017-02-28] MEDS: INSULIN REGULAR LOW DOSE QDAY SQ-INSULIN SCH (07:24)
[2017-02-28] MEDS: ENOXAPARIN 80 MG/0.8 ML SQ SCH ×2 (08:38→20:49)
[2017-02-28] MEDS ORDERED: DEXTROSE 5% 1,000 ML IV SCH (09:30)
[2017-02-28] MEDS: CEFTRIAXONE PMX 1GM/50ML 50 ML IV SCH (12:13)
[2017-02-28] MEDS ORDERED: MAGNESIUM SULFATE PMX 4GM/100M 100 ML IV ONE (15:30)
[2017-02-28] MEDS ORDERED: [UNRECOGNIZED DRUG - OTHER] IV SCH (18:00)
[2017-02-28] MEDS ORDERED: FAT EMULSIONS IV SCH (18:00)
[2017-02-28] MEDS ORDERED: DEXTROSE 70% IV SCH (18:00)
[2017-02-28] MEDS ORDERED: FILTER 1.2 MICRON IV PRN (18:00)
[2017-02-28] MEDS ORDERED: AMINO ACID 10% IV SCH (18:00)
[2017-02-28 18:30] VITALS: BP 90/62
[2017-03-01 00:38] VITALS: BP 94/63
[2017-03-01 04:40] LABS: BLOOD UREA NITROGEN 19 mg/dL (7-18)
[2017-03-01 06:44] VITALS: BP 98/70
[2017-03-01] MEDS: INSULIN REGULAR LOW DOSE QDAY SQ-INSULIN SCH (08:34)
[2017-03-01] MEDS: ENOXAPARIN 80 MG/0.8 ML SQ SCH ×2 (09:00→20:04)
[2017-03-01] MEDS: morphine SULFATE 10 MG/ML, 1ML IVPush PRN ×2 (09:27→20:04)
[2017-03-01] MEDS: CEFTRIAXONE PMX 1GM/50ML 50 ML IV SCH (12:58)
[2017-03-01 15:00] VITALS: BP 91/61
[2017-03-01] MEDS ORDERED: [UNRECOGNIZED DRUG - OTHER] IV SCH (17:00)
[2017-03-01] MEDS ORDERED: DEXTROSE 70% IV SCH (17:00)
[2017-03-01] MEDS ORDERED: FAT EMULSIONS IV SCH (17:00)
[2017-03-01] MEDS ORDERED: AMINO ACID 10% IV SCH (17:00)
[2017-03-01 19:32] VITALS: BP 96/68
[2017-03-02 02:13] VITALS: BP 101/69
[2017-03-02 05:19] LABS: HEMATOCRIT 24.4 % (34.6-47.8); HEMOGLOBIN 7.9 g/dL (11.7-16.4); WHITE BLOOD COUNT 9.5 x10^3/uL (3.4-10)
[2017-03-02 05:26] LABS: ASPARTATE AMINO TRANSFERASE 31 U/L (15-37); BLOOD UREA NITROGEN 18 mg/dL (7-18)
[2017-03-02 07:51] VITALS: BP 97/67
[2017-03-02] MEDS: INSULIN REGULAR LOW DOSE QDAY SQ-INSULIN SCH (08:13)
[2017-03-02] MEDS ORDERED: PROMETHAZINE 25 MG/ML, 1ML ONE (09:09)
[2017-03-02] MEDS: ENOXAPARIN 80 MG/0.8 ML SQ SCH ×2 (09:12→20:54)
[2017-03-02] MEDS: PROMETHAZINE 25 MG/ML, 1ML IM PRN (09:12)
[2017-03-02] MEDS: FENTANYL REMOVE PATCH NOTE XX SCH (11:20)
[2017-03-02] MEDS: CEFTRIAXONE PMX 1GM/50ML 50 ML IV SCH (12:33)
[2017-03-02 12:49] VITALS: BP 95/67
[2017-03-02] MEDS: morphine SULFATE 10 MG/ML, 1ML IVPush PRN (16:31)
[2017-03-02] MEDS: FILTER 1.2 MICRON IV PRN (16:59)
[2017-03-02] MEDS ORDERED: DEXTROSE 70% IV SCH (17:00)
[2017-03-02] MEDS ORDERED: FAT EMULSIONS IV SCH (17:00)
[2017-03-02] MEDS ORDERED: AMINO ACID 10% IV SCH (17:00)
[2017-03-02] MEDS ORDERED: [UNRECOGNIZED DRUG - OTHER] IV SCH (17:00)
[2017-03-02 20:06] VITALS: BP 101/69
[2017-03-03 02:42] VITALS: BP 94/63
[2017-03-03 06:30] LABS: BLOOD UREA NITROGEN 17 mg/dL (7-18)
[2017-03-03 07:02] VITALS: BP 101/70
[2017-03-03] MEDS: INSULIN REGULAR LOW DOSE QDAY SQ-INSULIN SCH (07:32)
[2017-03-03] MEDS: ENOXAPARIN 80 MG/0.8 ML SQ SCH ×2 (07:38→20:57)
[2017-03-03] MEDS: CEFTRIAXONE PMX 1GM/50ML 50 ML IV SCH (12:20)
[2017-03-03 12:25] VITALS: BP 101/71
[2017-03-03] MEDS ORDERED: [UNRECOGNIZED DRUG - OTHER] IV SCH (17:00)
[2017-03-03] MEDS ORDERED: DEXTROSE 70% IV SCH (17:00)
[2017-03-03] MEDS ORDERED: FAT EMULSIONS IV SCH (17:00)
[2017-03-03] MEDS ORDERED: AMINO ACID 10% IV SCH (17:00)
[2017-03-03] MEDS: FILTER 1.2 MICRON IV PRN (17:43)
[2017-03-03 20:20] VITALS: BP 103/74
[2017-03-04 02:23] VITALS: BP 100/70
[2017-03-04 07:39] VITALS: BP 108/76
[2017-03-04] MEDS: ENOXAPARIN 80 MG/0.8 ML SQ SCH ×2 (08:27→20:21)
[2017-03-04 08:42] LABS: HEMATOCRIT 28.4 % (34.6-47.8); HEMOGLOBIN 9.3 g/dL (11.7-16.4); WHITE BLOOD COUNT 9.6 x10^3/uL (3.4-10)
[2017-03-04 08:51] LABS: BLOOD UREA NITROGEN 22 mg/dL (7-18)
[2017-03-04] MEDS: INSULIN REGULAR LOW DOSE QDAY SQ-INSULIN SCH (08:57)
[2017-03-04 09:20] LABS: ANISOCYTOSIS 1+
[2017-03-04 09:21] LABS: MICROCYTOSIS 1+; OVALOCYTES 1+; POLYCHROMASIA 1+
[2017-03-04 09:22] LABS: LARGE PLATELETS 1+
[2017-03-04] MEDS: CEFTRIAXONE PMX 1GM/50ML 50 ML IV SCH (11:50)
[2017-03-04 12:55] VITALS: BP 109/76
[2017-03-04] MEDS ORDERED: [UNRECOGNIZED DRUG - OTHER] IV SCH (17:00)
[2017-03-04] MEDS ORDERED: FILTER 1.2 MICRON IV PRN (17:00)
[2017-03-04] MEDS ORDERED: DEXTROSE 70% IV SCH (17:00)
[2017-03-04] MEDS ORDERED: AMINO ACID 10% IV SCH (17:00)
[2017-03-04] MEDS ORDERED: FAT EMULSIONS IV SCH (17:00)
[2017-03-04] MEDS: morphine SULFATE 10 MG/ML, 1ML IVPush PRN (20:37)
[2017-03-05 00:54] VITALS: BP 103/73
[2017-03-05 05:39] LABS: HEMATOCRIT 29.4 % (34.6-47.8); HEMOGLOBIN 9.5 g/dL (11.7-16.4); WHITE BLOOD COUNT 10.9 x10^3/uL (3.4-10)
[2017-03-05 05:42] LABS: BLOOD UREA NITROGEN 24 mg/dL (7-18)
[2017-03-05 06:08] LABS: DIFF TOTAL CELLS COUNTED 100 CELL DIFF
[2017-03-05 06:10] LABS: ANISOCYTOSIS 1+; VERIFY COUNTS? YES
[2017-03-05 06:11] LABS: LARGE PLATELETS 1+; MICROCYTOSIS 1+; OVALOCYTES 1+; POLYCHROMASIA 1+
[2017-03-05] MEDS: ENOXAPARIN 80 MG/0.8 ML SQ SCH ×2 (07:38→21:20)
[2017-03-05] MEDS: FENTANYL 50 MCG PATCH TD PRN (07:38)
[2017-03-05] MEDS: INSULIN REGULAR LOW DOSE QDAY SQ-INSULIN SCH (07:43)
[2017-03-05] MEDS: FENTANYL REMOVE PATCH NOTE XX SCH (07:43)
[2017-03-05 08:15] VITALS: BP 105/75
[2017-03-05] MEDS: CEFTRIAXONE PMX 1GM/50ML 50 ML IV SCH (13:05)
[2017-03-05 14:31] VITALS: BP 108/77
[2017-03-05] MEDS ORDERED: FAT EMULSIONS IV SCH (17:00)
[2017-03-05] MEDS ORDERED: DEXTROSE 70% IV SCH (17:00)
[2017-03-05] MEDS ORDERED: AMINO ACID 10% IV SCH (17:00)
[2017-03-05] MEDS ORDERED: FILTER 1.2 MICRON IV PRN (17:00)
[2017-03-05] MEDS ORDERED: [UNRECOGNIZED DRUG - OTHER] IV SCH (17:00)
[2017-03-05] MEDS: morphine SULFATE 10 MG/ML, 1ML IVPush PRN (17:01)
[2017-03-05] MEDS: ONDANSETRON 2MG/ML, 2ML IVPush PRN (17:01)
[2017-03-05 20:00] VITALS: BP 101/70
[2017-03-06 02:00] VITALS: BP 92/64
[2017-03-06 05:59] LABS: HEMATOCRIT 28.9 % (34.6-47.8); HEMOGLOBIN 9.4 g/dL (11.7-16.4); WHITE BLOOD COUNT 9.4 x10^3/uL (3.4-10)
[2017-03-06 06:07] LABS: BLOOD UREA NITROGEN 27 mg/dL (7-18)
[2017-03-06 06:11] LABS: ASPARTATE AMINO TRANSFERASE 32 U/L (15-37)
[2017-03-06] MEDS: INSULIN REGULAR LOW DOSE QDAY SQ-INSULIN SCH (07:16)
[2017-03-06] MEDS: ENOXAPARIN 80 MG/0.8 ML SQ SCH ×2 (07:55→20:52)
[2017-03-06 08:00] VITALS: BP 103/70
[2017-03-06] MEDS: ONDANSETRON 2MG/ML, 2ML IVPush PRN (11:08)
[2017-03-06] MEDS: morphine SULFATE 10 MG/ML, 1ML IVPush PRN ×2 (11:08→20:52)
[2017-03-06] MEDS: CEFTRIAXONE PMX 1GM/50ML 50 ML IV SCH (11:10)
[2017-03-06 15:24] VITALS: BP 99/69
[2017-03-06 15:49] VITALS: BP 107/61
[2017-03-06] MEDS ORDERED: DEXTROSE 70% IV SCH (17:00)
[2017-03-06] MEDS ORDERED: FAT EMULSIONS IV SCH (17:00)
[2017-03-06] MEDS ORDERED: [UNRECOGNIZED DRUG - OTHER] IV SCH (17:00)
[2017-03-06] MEDS ORDERED: AMINO ACID 10% IV SCH (17:00)
[2017-03-06] MEDS ORDERED: FILTER 1.2 MICRON IV PRN (18:00)
[2017-03-06 18:33] VITALS: BP 108/74
[2017-03-07 02:47] VITALS: BP 103/73
[2017-03-07 03:07] LABS: BLOOD UREA NITROGEN 27 mg/dL (7-18)
[2017-03-07 07:24] VITALS: BP 104/70
[2017-03-07] MEDS: ENOXAPARIN 80 MG/0.8 ML SQ SCH ×2 (09:00→20:38)
[2017-03-07] MEDS: INSULIN REGULAR LOW DOSE QDAY SQ-INSULIN SCH (09:00)
[2017-03-07] MEDS: morphine SULFATE ORAL.CONC 20 MG/ML PO PRN ×2 (11:52→20:42)
[2017-03-07 13:44] VITALS: BP 110/74
[2017-03-07] MEDS ORDERED: AMINO ACID 10% IV SCH (17:00)
[2017-03-07] MEDS ORDERED: DEXTROSE 70% IV SCH (17:00)
[2017-03-07] MEDS ORDERED: FAT EMULSIONS IV SCH (17:00)
[2017-03-07] MEDS ORDERED: [UNRECOGNIZED DRUG - OTHER] IV SCH (17:00)
[2017-03-07] MEDS: FILTER 1.2 MICRON IV PRN (17:39)
[2017-03-07 18:36] VITALS: BP 120/83
[2017-03-08 03:31] VITALS: BP 114/81
[2017-03-08 04:30] LABS: HEMATOCRIT 30.9 % (34.6-47.8); HEMOGLOBIN 10.1 g/dL (11.7-16.4); WHITE BLOOD COUNT 10.8 x10^3/uL (3.4-10)
[2017-03-08 04:32] LABS: BLOOD UREA NITROGEN 25 mg/dL (7-18)
[2017-03-08 07:40] VITALS: BP 111/79
[2017-03-08] MEDS: ENOXAPARIN 80 MG/0.8 ML SQ SCH ×2 (09:07→20:03)
[2017-03-08] MEDS: INSULIN REGULAR LOW DOSE QDAY SQ-INSULIN SCH (09:10)
[2017-03-08] MEDS: morphine SULFATE ORAL.CONC 20 MG/ML PO PRN ×2 (09:28→18:35)
[2017-03-08] MEDS: FENTANYL REMOVE PATCH NOTE XX SCH (11:20)
[2017-03-08 13:57] VITALS: BP 107/74
[2017-03-08] MEDS ORDERED: FAT EMULSIONS IV SCH (17:00)
[2017-03-08] MEDS ORDERED: AMINO ACID 10% IV SCH (17:00)
[2017-03-08] MEDS ORDERED: [UNRECOGNIZED DRUG - OTHER] IV SCH (17:00)
[2017-03-08] MEDS ORDERED: DEXTROSE 70% IV SCH (17:00)
[2017-03-08] MEDS: FILTER 1.2 MICRON IV PRN (17:17)
[2017-03-08] MEDS: DRONABINOL 5 MG CAPSULE PO SCH (20:03)
[2017-03-08 20:41] VITALS: BP 112/75
[2017-03-09 00:45] VITALS: BP 107/77
[2017-03-09 04:18] LABS: HEMATOCRIT 34.8 % (34.6-47.8); HEMOGLOBIN 11.3 g/dL (11.7-16.4); WHITE BLOOD COUNT 9.4 x10^3/uL (3.4-10)
[2017-03-09 04:28] LABS: BLOOD UREA NITROGEN 26 mg/dL (7-18)
[2017-03-09 06:25] VITALS: BP 112/81
[2017-03-09] MEDS: morphine SULFATE ORAL.CONC 20 MG/ML PO PRN ×2 (07:58→17:58)
[2017-03-09] MEDS: INSULIN REGULAR LOW DOSE QDAY SQ-INSULIN SCH (10:05)
[2017-03-09] MEDS: ENOXAPARIN 80 MG/0.8 ML SQ SCH ×2 (10:05→21:04)
[2017-03-09] MEDS: DRONABINOL 5 MG CAPSULE PO SCH ×2 (10:08→21:03)
[2017-03-09 12:51] VITALS: BP 110/79
[2017-03-09] MEDS ORDERED: DEXTROSE 70% IV SCH (17:00)
[2017-03-09] MEDS ORDERED: [UNRECOGNIZED DRUG - OTHER] IV SCH (17:00)
[2017-03-09] MEDS ORDERED: AMINO ACID 10% IV SCH (17:00)
[2017-03-09] MEDS ORDERED: FAT EMULSIONS IV SCH (17:00)
[2017-03-09] MEDS: FILTER 1.2 MICRON IV PRN (17:59)
[2017-03-09 19:17] VITALS: BP 114/81
[2017-03-10] MEDS: ONDANSETRON 2MG/ML, 2ML IVPush PRN ×4 (02:05→20:33)
[2017-03-10 02:17] VITALS: BP 133/82
[2017-03-10 05:25] LABS: BLOOD UREA NITROGEN 32 mg/dL (7-18)
[2017-03-10 07:47] VITALS: BP 110/78
[2017-03-10] MEDS: DRONABINOL 5 MG CAPSULE PO SCH ×2 (07:53→21:00)
[2017-03-10] MEDS: ENOXAPARIN 80 MG/0.8 ML SQ SCH ×2 (07:54→21:00)
[2017-03-10] MEDS: INSULIN REGULAR LOW DOSE QDAY SQ-INSULIN SCH (07:59)
[2017-03-10 13:37] VITALS: BP 105/75
[2017-03-10] MEDS: morphine SULFATE ORAL.CONC 20 MG/ML PO PRN ×2 (15:00→19:18)
[2017-03-10] MEDS ORDERED: AMINO ACID 10% IV SCH (17:00)
[2017-03-10] MEDS ORDERED: FAT EMULSIONS IV SCH (17:00)
[2017-03-10] MEDS ORDERED: DEXTROSE 70% IV SCH (17:00)
[2017-03-10] MEDS ORDERED: [UNRECOGNIZED DRUG - OTHER] IV SCH (17:00)
[2017-03-10] MEDS ORDERED: FILTER 1.2 MICRON IV PRN (17:00)
[2017-03-10 20:44] VITALS: BP 102/66
[2017-03-11] MEDS: ONDANSETRON 2MG/ML, 2ML IVPush PRN ×5 (02:21→22:05)
[2017-03-11 02:33] VITALS: BP 92/66
[2017-03-11] MEDS: morphine SULFATE ORAL.CONC 20 MG/ML PO PRN ×2 (03:51→22:05)
[2017-03-11 06:42] VITALS: BP 98/73
[2017-03-11] MEDS: DRONABINOL 5 MG CAPSULE PO SCH ×2 (08:56→21:21)
[2017-03-11] MEDS: ENOXAPARIN 80 MG/0.8 ML SQ SCH ×2 (08:56→21:21)
[2017-03-11] MEDS: INSULIN REGULAR LOW DOSE QDAY SQ-INSULIN SCH (08:56)
[2017-03-11] MEDS: FENTANYL REMOVE PATCH NOTE XX SCH (11:20)
[2017-03-11 13:14] VITALS: BP 93/66
[2017-03-11] MEDS ORDERED: DEXTROSE 70% IV SCH (17:00)
[2017-03-11] MEDS ORDERED: FAT EMULSIONS IV SCH (17:00)
[2017-03-11] MEDS ORDERED: AMINO ACID 10% IV SCH (17:00)
[2017-03-11] MEDS ORDERED: [UNRECOGNIZED DRUG - OTHER] IV SCH (17:00)
[2017-03-11] MEDS ORDERED: FILTER 1.2 MICRON IV PRN (17:00)
[2017-03-11 18:52] VITALS: BP 94/62
[2017-03-11] MEDS: PROMETHAZINE 25 MG/ML, 1ML IM PRN (23:14)
[2017-03-12 01:50] VITALS: BP 109/77
[2017-03-12] MEDS: ONDANSETRON 2MG/ML, 2ML IVPush PRN ×3 (02:12→12:53)
[2017-03-12 02:47] LABS: BLOOD UREA NITROGEN 36 mg/dL (7-18)
[2017-03-12 08:00] VITALS: BP 119/83
[2017-03-12] MEDS: INSULIN REGULAR LOW DOSE QDAY SQ-INSULIN SCH (09:00)
[2017-03-12] MEDS: DRONABINOL 5 MG CAPSULE PO SCH ×2 (09:22→20:22)
[2017-03-12] MEDS: ENOXAPARIN 80 MG/0.8 ML SQ SCH ×2 (09:22→20:22)
[2017-03-12] MEDS: FENTANYL 50 MCG PATCH TD PRN (09:24)
[2017-03-12] MEDS: morphine SULFATE ORAL.CONC 20 MG/ML PO PRN ×3 (09:30→21:16)
[2017-03-12 13:52] VITALS: BP 120/77
[2017-03-12] MEDS ORDERED: maalox/diphenh/lido/sucralfate 5 ML PO PRN (16:00)
[2017-03-12] MEDS ORDERED: FAT EMULSIONS IV SCH (17:00)
[2017-03-12] MEDS ORDERED: FILTER 1.2 MICRON IV PRN (17:00)
[2017-03-12] MEDS ORDERED: [UNRECOGNIZED DRUG - OTHER] IV SCH (17:00)
[2017-03-12] MEDS ORDERED: AMINO ACID 10% IV SCH (17:00)
[2017-03-12] MEDS ORDERED: DEXTROSE 70% IV SCH (17:00)
[2017-03-12 19:05] VITALS: BP 116/86
[2017-03-13 02:01] VITALS: BP 107/78
[2017-03-13 07:28] VITALS: BP 92/69
[2017-03-13] MEDS: INSULIN REGULAR LOW DOSE QDAY SQ-INSULIN SCH (08:09)
[2017-03-13] MEDS: DRONABINOL 5 MG CAPSULE PO SCH (08:10)
[2017-03-13] MEDS: ENOXAPARIN 80 MG/0.8 ML SQ SCH (08:12)
[2017-03-13] MEDS: morphine SULFATE ORAL.CONC 20 MG/ML PO PRN ×2 (09:03→13:28)
[2017-03-13] MEDS: ONDANSETRON 2MG/ML, 2ML IVPush PRN ×2 (09:03→13:28)
== END 2017-03-13 14:00 | disposition hospice, home (50) | DRG 640 ==
LOC: ED 07:25 → EDIP 09:47 → CCU 11:14 → 5SO 02-27 15:27 → 3NW 03-06 15:34
PROVIDERS: ADMIT Internal Medicine; ATTEND Family Medicine
PROC: 0T9B70Z Drainage of Bladder with Drainage Device, Via Natural or Artificial Opening (ICD-10-PCS; 2017-02-24)
PROC: 3E0336Z Introduction of Nutritional Substance into Peripheral Vein, Percutaneous Approach (ICD-10-PCS; principal; 2017-02-25)
DX: E87.0 Hyperosmolality and hypernatremia (principal); G93.41 Metabolic encephalopathy; N17.0 Acute kidney failure with tubular necrosis; I47.2 Ventricular tachycardia; E43 Unspecified severe protein-calorie malnutrition; K56.609 Unspecified intestinal obstruction, unspecified as to partial versus complete obstruction; C56.9 Malignant neoplasm of unspecified ovary; N30.90 Cystitis, unspecified without hematuria; E83.42 Hypomagnesemia; D63.8 Anemia in other chronic diseases classified elsewhere; E86.0 Dehydration; E87.6 Hypokalemia; I10 Essential (primary) hypertension; Z51.5 Encounter for palliative care; Z66 Do not resuscitate; Z79.01 Long term (current) use of anticoagulants; Z80.0 Family history of malignant neoplasm of digestive organs; Z82.0 Family history of epilepsy and other diseases of the nervous system; Z86.718 Personal history of other venous thrombosis and embolism; Z85.43 Personal history of malignant neoplasm of ovary; Z87.891 Personal history of nicotine dependence; Z92.21 Personal history of antineoplastic chemotherapy; Z68.28 Body mass index [BMI] 28.0-28.9, adult
CPT/HCPCS: 36415; 71010; 80048; 80053; 81001; 82962; 83605; 83735; 84100; 84132; 84134; 84145; 84295; 84478; 85025; 87040; 87077; 87081; 87086; 87186; 93005; 96361; 96365; J0610; J0696; J1650; J1815; J2405; J2550; J3475; J3480; J7070; Q0167; J2270; J3420; J7030; S0028